=== PATIENT | female | born 1985 | race African-American/Black ===

== ENCOUNTER 2017-03-27 09:25 | Emergency (ER) | payer MEDICAID ==
[~2017-03-27] VITALS: Ht 152.4 cm; Wt 56.0 kg
[2017-03-27 11:08] LABS: HEMATOCRIT 33.6 % (36.0-48.0); HEMOGLOBIN 10.6 g/dL (12.0-16.0); MEAN CORPUSCULAR HEMOGLOBIN 24.1 pg (28.0-32.0); MEAN CORPUSCULAR VOLUME 76.2 fL (81.0-99.0); PLATELET 192 x1000/uL (130-400); RED CELL DISTRIBUTION WIDTH 13.1 % (11.6-14.6)
[2017-03-27 11:19] LABS: HCG SCREEN NEGATIVE
[2017-03-27 12:21] VITALS: BP 110/69
== END 2017-03-27 12:22 | disposition home or self-care (01) ==
LOC: ER 09:25
DX: N93.8 Other specified abnormal uterine and vaginal bleeding (principal)
CPT/HCPCS: 36415; 84703; 85027; 99284